=== PATIENT | male | born 1970 | race Caucasian/White ===

== ENCOUNTER 2021-01-10 14:38 | Emergency (ER) | payer OTHER ==
[2021-01-10 14:44] VITALS: BP 148/95
[2021-01-10] MEDS ORDERED: TETANUS/DIPHTHERIA/PERTUSSIS 0.5 ML SYRINGE IM ONE (14:46)
--- NOTE | 2021-01-10 14:46 | ED Physician Documentation ---
PD HPI SKIN - Stated complaint Stated Complaint: R MIDDLE FINGER LAC - Chief complaint Chief Complaint: Laceration - History obtained from History obtained from: Patient - Additional information Additional information: Patient cut his right middle finger on a metal sheet just prior to arrival. He was concerned he may need stitches. Visiting the area on business from [place], unsure of last td. Review of Systems Ten Systems: 10 systems reviewed and negative Skin: reports: Laceration (s) PD PAST MEDICAL HISTORY - Past Medical History Past Medical History: No - Allergies Allergies/Adverse Reactions: Allergies Allergy/AdvReac Type Severity Reaction Status Date / Time sesame oil AdvReac Hives Verified 01/10/21 14:44 sesame seed AdvReac Hives Verified 01/10/21 14:44 PD ED PE NORMAL - Vitals Vital signs reviewed: Yes - General General: Alert and oriented X 3, No acute distress, Well developed/nourished - HEENT HEENT: Atraumatic - Respiratory Respiratory: No respiratory distress - Derm Derm: Normal color, Warm and dry, Other (1.5cm laceration through the dermis of the right middle finger. Nail intact, sensation intact, normal ROM and no tendon involvement. ) - Extremities Extremities: No deformity, No tenderness to palpate, Normal ROM s pain - Neuro Neuro: Alert and oriented X 3 Eye Opening: Spontaneous Motor: Obeys Commands Verbal: Oriented GCS Score: 15 Results - Vitals Vitals: Vital Signs - 24 hr 01/10/21 14:40 Temperature 36.9 C Heart Rate 79 Respiratory 16 Rate Blood Pressure 148/95 H O2 Saturation 96 Oxygen O2 Source Room air PD MEDICAL DECISION MAKING - ED course Complexity details: d/w patient ED course: Pt presented w/ a right middle finger laceration. I placed a finger tq on it and evaluated it. The laceration is through the dermis, uncomplicated. I discussed sutures vs steristrips and dermabond. Pt ok with either. I proceeded w/ dermabond + steristrips. Wound cleaned w/ NS and dermabond applied w/ excellent wound edge approximation. I then covered in steristrips. A gauze dressing was applied. Home wound care instructions provided. Return precautions reviewed. Tdap updated. Departure - Departure Disposition: 01 Home, Self Care Clinical Impression: Laceration Condition: Good Instructions: ED Laceration Hand Comments: You presented with a finger laceration. I cleaned it and placed dermabond and steristrips on it. Please keep clean and dry, avoid soaking. Steristrips and glue will slowly come off over the next 4-5 days. Seek care if there are signs of infection (redness, swelling, purulent drainage, etc). Your tdap was updated today. Discharge Date/Time: 01/10/21 15:24
== END 2021-01-10 15:24 | disposition home or self-care (01) ==
LOC: ED 14:38
DX: S61.212A Laceration without foreign body of right middle finger without damage to nail, initial encounter (principal); W26.8XXA Contact with other sharp object(s), not elsewhere classified, initial encounter; Y93.89 Activity, other specified; Y99.0 Civilian activity done for income or pay
CPT/HCPCS: 12001; 90471; 99282; 99283